=== PATIENT | male | born 2000 | race Caucasian/White ===

== ENCOUNTER 2022-05-20 19:42 | Emergency (ER) | payer OTHER ==
[2022-05-20 19:48] VITALS: BP 153/68; PULSE 109; RESP 16; TEMP 97.3
--- NOTE | 2022-05-20 20:12 | ED ---
General Adult HPI - General Chief complaint: Recheck/Abnormal Lab/Rx Stated complaint: Correction clearance Time Seen by Provider: 05/20/22 19:54 Source: patient Mode of arrival: ambulatory Limitations: no limitations - History of Present Illness Initial comments: Patient is 21-year-old male who presents for rectal cancer fpc. Patient was tased in the right scapula and left ribs posteriorly. Review of Systems ROS Statement: Those systems with pertinent positive or pertinent negative responses have been documented in the HPI. ROS Other: All systems not noted in ROS Statement are negative. General Exam Limitations: no limitations General appearance: alert Head exam: Present: atraumatic, normocephalic, normal inspection Eye exam: Present: normal appearance, PERRL, EOMI. Absent: scleral icterus, conjunctival injection, periorbital swelling Respiratory exam: Present: normal lung sounds bilaterally. Absent: respiratory distress, wheezes, rales, rhonchi, stridor Cardiovascular Exam: Present: regular rate, normal rhythm, normal heart sounds. Absent: systolic murmur, diastolic murmur, rubs, gallop, clicks Neurological exam: Present: alert, oriented X3, CN II-XII intact Psychiatric exam: Present: normal affect, normal mood Skin exam: Present: warm, dry, intact, normal color, other (1 cm taser wounds over the left ribs posteriorly and right scapula. No surrounding erythema, ecchymosis, swelling, or drainage). Absent: rash Course Vital Signs 05/20/22 19:43 Temperature 97.3 F L Pulse Rate 109 H Respiratory 16 Rate Blood Pressure 153/68 O2 Sat by Pulse 96 Oximetry Medical Decision Making - Medical Decision Making This is a 21-year-old male who presents for medical clearance. Thorough history and examination were performed. There are 1 cm taser wounds over the left ribs posteriorly and the right scapula. No surrounding erythema, ecchymosis, swelling, or drainage. No barbs left in the wounds. The wounds were cleaned extensively. Patient is cleared medically. Dr. Rodriguez is my attending. Disposition Clinical Impression: Medical clearance for incarceration Disposition: HOME SELF-CARE Condition: Good Additional Instructions: Return to the emergency Department patient experiences new, concerning, or worsening symptoms. Is patient prescribed a controlled substance at d/c from ED?: No Referrals: None,Stated [Primary Care Provider] - 1-2 days Time of Disposition: 20:12
== END 2022-05-20 20:15 | disposition home or self-care (01) ==
LOC: EC 19:42
CPT/HCPCS: 99283